=== PATIENT | female | born 1975 | race Caucasian/White ===

== ENCOUNTER 2019-03-11 13:47 | Emergency (ER) | payer OTHER ==
[~2019-03-11] VITALS: Ht 160 cm; Wt 56.7 kg
[~2019-03-11 13:47] MED LIST: CHANTIX1 MG PO; COMBIVENT INH; FLONASE16 GM NASAL; HYDROCODON-ACE1 EAC7 PO; IBUPROFEN 800800 MG PO; MEDROLDOSEPACK PO; NOHOMEMEDICATIONS; NORCO 5-325 TA1 EACH PO; PREDNISONE 20 M20 M1 PO; ZPAK PO
[2019-03-11 15:42] VITALS: BP 133/88
== END 2019-03-11 15:30 | disposition home or self-care (01) ==
LOC: M.ERS 13:47
DX: S50.02XA Contusion of left elbow, initial encounter (principal); M79.671 Pain in right foot; W18.39XA Other fall on same level, initial encounter; Y93.89 Activity, other specified; Y92.89 Other specified places as the place of occurrence of the external cause; Y99.8 Other external cause status; Z90.710 Acquired absence of both cervix and uterus; Z98.890 Other specified postprocedural states

== ENCOUNTER 2020-10-02 15:48 | Emergency (ER) | payer OTHER ==
[~2020-10-02] VITALS: Ht 160 cm; Wt 59.0 kg
[2020-10-02] MEDS ORDERED: AMOXIL 875 MG875 M1 PO (17:03)
[2020-10-02] MEDS ORDERED: APAP W/CODEINE1 TA2 PO (17:03)
[2020-10-02 17:10] VITALS: BP 128/83
== END 2020-10-02 17:10 | disposition home or self-care (01) ==
LOC: M.ERS 15:48
DX: J02.9 Acute pharyngitis, unspecified (principal); Z20.828 Contact with and (suspected) exposure to other viral communicable diseases; F17.210 Nicotine dependence, cigarettes, uncomplicated; Z98.890 Other specified postprocedural states; Z98.51 Tubal ligation status; Z90.710 Acquired absence of both cervix and uterus

== ENCOUNTER 2021-04-26 11:03 | Emergency (ER) | payer OTHER ==
[~2021-04-26] VITALS: Ht 160 cm; Wt 63.5 kg
[~2021-04-26 11:03] MED LIST changes: +AMOXIL 875 MG875 M1 PO; +APAP W/CODEINE1 TA2 PO
[2021-04-26] MEDS ORDERED: IBU600 MG PO (12:25)
[2021-04-26 12:35] VITALS: BP 122/78
== END 2021-04-26 12:36 | disposition home or self-care (01) ==
LOC: M.ERS 11:03
DX: S93.492A Sprain of other ligament of left ankle, initial encounter (principal); S80.01XA Contusion of right knee, initial encounter; F17.210 Nicotine dependence, cigarettes, uncomplicated; K21.9 Gastro-esophageal reflux disease without esophagitis; W10.8XXA Fall (on) (from) other stairs and steps, initial encounter; Y93.89 Activity, other specified; Y92.89 Other specified places as the place of occurrence of the external cause; Y99.8 Other external cause status